=== PATIENT | female | born 1945 | race Caucasian/White ===

== ENCOUNTER → 2017-01-19 | Outpatient (CLI) | payer MEDICARE, MEDICAID ==
[~2017-01-19] MED LIST: NAMENDA ONE; REMERON ONE; RISPERDAL ONE; SYNTHROID ONE
--- NOTE | 2017-01-19 17:07 | DIREP ---
PROCEDURE:MRI UPPER EXTREM JOINT W O CON LEFT COMPARISON:None. INDICATIONS:SHOULDER PAIN TECHNIQUE:A variety of imaging planes and parameters were utilized for visualization of suspected pathology. Images were performed without contrast. FINDINGS: ROTATOR CUFF REGION CUFF TENDONS:Mild supraspinatus tendinosis. Infraspinatus, teres minor and subscapularis tendons are intact. CUFF MUSCLES:Normal appearing muscles. DELTOID:Normal. No significant atrophy or tear. LONG BICEPS TENDON:Normal. No abnormal signal, attrition, or tear. LABRUM/BICEPS ANCHOR SUPERIOR:Diffusely degenerated and torn ANTERIOR/INFERIOR:Diffusely degenerated and torn POSTERIOR:Diffusely degenerated and torn CAPSULE ANTERIOR/INFERIOR:Normal. No visible capsular laxity or thickening. POSTERIOR:Normal. No visible capsular laxity or thickening. AC JOINT REGION AC JOINT:Severe arthropathy with undersurface mass-effect on the supraspinatus muscle. AC LIGAMENTS:Normal acromioclavicular ligament. CC LIGAMENTS:Normal coracoclavicular ligaments. ACROMION:Morphology is type 1. SUBACROMIAL BURSA:Small amount of fluid in the bursa. HYALINE CARTILAGE:Severe cartilage loss. OTHER BONES:Large humeral head osteophytes. Small glenoid osteophytes. OTHER OBSERVATIONS:Small glenohumeral joint effusion. CONCLUSION: 1. Severe glenohumeral degenerative arthropathy. 2. Labrum is diffusely degenerated and torn. 3. Supraspinatus tendinosis. Dictated by: Sunil Rodarte M.D. on 01/19/2017 at 05:03 PM
== END | disposition home or self-care (01) ==
LOC: MRI 09:01
PROVIDERS: ATTEND Orthopaedic Surgery
DX: M12.812 Other specific arthropathies, not elsewhere classified, left shoulder (principal); M75.102 Unspecified rotator cuff tear or rupture of left shoulder, not specified as traumatic
CPT/HCPCS: 73221

== ENCOUNTER 2017-04-12 04:21 | Day surgery (SDC) | payer MEDICARE, MEDICAID ==
[2017-04-09 14:37] VITALS: BP 144/86
--- NOTE | 2017-04-09 14:48 | PCM.EKG ---
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
[~2017-04-12] VITALS: Ht 170.2 cm; Wt 81.6 kg
[~2017-04-12 04:21] MED LIST changes: +CETI10TA18 PO; +FLUO20CA8 PO; +GLIM4TAB2 PO; +LISI10TA2 PO; +LOSA100T6 PO; +MOVIPREP POWDER PACKET PO STA; -NAMENDA ONE; +PIOG30TA27 PO; -REMERON ONE; -RISPERDAL ONE; +SIMV20TA3 PO; -SYNTHROID ONE
[2017-04-12] MEDS ORDERED: NS 1000ML 1,000 ML ONE (05:06)
[2017-04-12] MEDS ORDERED: XYLOCAINE ONE (06:35)
[2017-04-12] MEDS ORDERED: DIPRIVAN IV ONE (06:35)
[2017-04-12 06:55] VITALS: BP 149/76
[2017-04-12] MEDS ORDERED: NS 1000ML 1,000 ML IV SCH (07:00)
[2017-04-12 12:09] VITALS: BP 143/80
[2017-04-12 12:20] VITALS: BP 139/99
[2017-04-12 12:50] VITALS: BP 160/53
--- NOTE | 2017-04-12 13:00 | OPH ---
DATE OF SURGERY: 04/12/2017 PREOPERATIVE DIAGNOSES: 1. History of blood in stools. 2. Need for screening. POSTOPERATIVE DIAGNOSES: 1. Gastritis. 2. Hemorrhoids. 3. Redundant colon. SURGEON: Simba Ng DO ICE CREAM MIXER: OR staff. ANESTHESIA: Total intravenous anesthesia by Santino Syed CRNA. PROCEDURES PERFORMED: 1. EGD with biopsy. 2. Long flexible colonoscopy with cecum. SPECIMENS: Gastric mucosa to path. ESTIMATED BLOOD LOSS: 7 mL. COUNTS: At the completion of the case, the counts were correct per OR staff. DESCRIPTION OF PROCEDURE: The patient is a 71-year-old female known from previous evaluation. Prior to procedure, informed consent was obtained. At time of procedure, she was taken to the operative suite and placed in supine position. After time-out, she was placed in left lateral recumbent position. After adequate sedation, esophagogastroduodenoscope was advanced transorally with pneumoinsufflation distally into second portion of duodenum. Once the duodenum was adequately visualized, camera was slowly withdrawn to facilitate visualization of the duodenal bulb and the pylorus. Pylorus does show gastritis and biopsies were obtained. The retroflexed maneuver was performed. Cardia and fundus were essentially within normal limits. Camera was reduced. Hemostasis noted to be good. Stomach was decompressed. Scope was slowly withdrawn. Distal, mid and proximal esophagus were essentially within normal limits. Vocal cords were visualized within normal limits. Camera was removed. Procedure was continued. The patient remains in the OR. Timeout was previously completed. With adequate sedation, rectal exam was performed. There are no masses. There was noted to be some soft external hemorrhoids. Next, the colonoscope was advanced transanally with pneumoinsufflation proximally through multiple redundancies with extensive efforts to the level of the cecum. Once the cecum was visualized, there was noted to have an adequate prep. Camera was slowly withdrawn to facilitate visualization of the ascending colon, the hepatic flexure and the transverse colon, there was noted to be extensive redundancies in the transverse colon and associated with the splenic flexure. Further withdrawn to the remainder of the splenic flexure, the descending colon, and sigmoid. In the distal descending and the sigmoid, there was noted to be few redundancies. Camera was further withdrawn to the remainder of the sigmoid and the rectum. The visualized portions of the colon showed no overt masses, polyps, or AVMs. Camera was withdrawn to the level of 5 cm in the rectum where it was retroflexed and reinserted. Anal verge was visualized within normal limits. Camera was reduced. Colon was decompressed. Colonoscope was removed. The patient tolerated this procedure well. There were no acute complications noted. Simba Ng DO DR: KENA/gary JOB# [id number] CC: Felicitas Prajapati
[2017-04-12 13:05] VITALS: BP 164/68
[2017-04-12 13:20] VITALS: BP 160/64
== END 2017-04-12 13:35 | disposition home or self-care (01) | DRG 395 ==
LOC: SDC 04:21
PROVIDERS: ATTEND Surgery
DX: K63.89 Other specified diseases of intestine (principal); K29.70 Gastritis, unspecified, without bleeding; K64.9 Unspecified hemorrhoids; E11.65 Type 2 diabetes mellitus with hyperglycemia; E78.5 Hyperlipidemia, unspecified; E66.3 Overweight; I10 Essential (primary) hypertension; M19.012 Primary osteoarthritis, left shoulder; Z98.890 Other specified postprocedural states; Z83.3 Family history of diabetes mellitus; F15.90 Other stimulant use, unspecified, uncomplicated; Z79.899 Other long term (current) drug therapy; K21.9 Gastro-esophageal reflux disease without esophagitis; Z79.84 Long term (current) use of oral hypoglycemic drugs; Z98.49 Cataract extraction status, unspecified eye; Z68.28 Body mass index [BMI] 28.0-28.9, adult
CPT/HCPCS: 43239; 45378; 82948; 93005; J3490 ×2; J7030; 88305; G0105

== ENCOUNTER → 2019-02-24 | Outpatient (CLI) | payer MEDICARE, MEDICAID ==
[~2019-02-24] MED LIST changes: +LOSA100T14 PO; -LOSA100T6 PO; -MOVIPREP POWDER PACKET PO STA
--- NOTE | 2019-02-24 12:02 | DIREP ---
PROCEDURE:US ABDOMEN LIMITED(SINGLE ORGAN-QUAD) COMPARISON:None. INDICATIONS:RUQ PAIN TECHNIQUE: High resolution sonographic examination was performed of the abdomen. FINDINGS: CBD:0.4 cm GALLBLADDER:0.4 cm RIGHT KIDNEY:12.0 x 6.3 x 5.8 cm PANCREAS:Visualized pancreatic head, body and tail are normal. The pancreatic tail is partially obscured by overlying bowel gas. LIVER:Increased hepatic echotexture consistent with hepatic steatosis. No focal hepatic lesion identified. Hepatopetal flow in the portal vein. Normal spectral waveform on the portal vein. GALLBLADDER:Nondilated. Normal appearing gallbladder without evidence for gallbladder wall thickening or pericholecystic fluid. BILIARY:There is no biliary ductal dilatation. RIGHT KIDNEY:Normal. No hydronephrosis. OTHER:Negative. No ascites is identified. CONCLUSION: 1. Hepatic steatosis. Dictated by: HPRA Physician on 02/24/2019 at 11:25 AM elias
== END | disposition home or self-care (01) ==
LOC: RAD 10:44
PROVIDERS: ATTEND Physician Assistant
DX: K76.0 Fatty (change of) liver, not elsewhere classified (principal)
CPT/HCPCS: 76705

== ENCOUNTER → 2020-05-28 | Outpatient (CLI) | payer MEDICARE, MEDICAID ==
[~2020-05-28] MED LIST changes: +FLUO20CA23 PO; -FLUO20CA8 PO; -GLIM4TAB2 PO; +GLIM4TAB8 PO; +SIMV20TA19 PO; -SIMV20TA3 PO
--- NOTE | 2020-05-28 17:18 | DIREP ---
PROCEDURE:CT HEAD OR BRAIN W/O CONTRAST COMPARISON:None. INDICATIONS:GAIT DISTURBANCE TECHNIQUE:CT images were created without intravenous contrast. FINDINGS: VENTRICLES:No hydrocephalus or midline shift. CEREBRUM:Mild enlargement of the cerebral sulci and fissures. Multiple areas of decreased density in the deep white matter of each hemisphere. CEREBELLUM:Negative. BRAINSTEM:Negative. BASAL CISTERNS:Negative. SKULL:Normal. No fractures. SINUSES:Normal. OTHER:No acute intracranial hemorrhage, large territorial infarct, abnormal extra-axial fluid collection, or CT evidence of acute cortical infarct. There is calcification of the intracranial portions of both internal carotid and both vertebral arteries. CONCLUSION: 1. Mild age-related cerebral volume loss, intracranial arterial calcification, and moderate leukoariosis. 2. No acute pathology on noncontrast CT of the head. Dictated by: Rosales Chaves M.D. on 05/28/2020 at 05:16 PM
== END | disposition home or self-care (01) ==
LOC: RAD 15:34
PROVIDERS: ATTEND Physician Assistant
DX: I67.81 Acute cerebrovascular insufficiency (principal); R26.89 Other abnormalities of gait and mobility
CPT/HCPCS: 70450

== ENCOUNTER → 2023-02-17 | Outpatient (CLI) | payer MEDICARE, MEDICAID ==
[~2023-02-17] MED LIST changes: -FLUO20CA23 PO; +FLUO20CA25 PO; -LISI10TA2 PO; +LISI10TA20 PO; -LOSA100T14 PO; +LOSA100T15 PO
== END | disposition home or self-care (01) ==
LOC: RAD 14:45
PROVIDERS: ATTEND Nurse Practitioner Family
DX: S52.132A Displaced fracture of neck of left radius, initial encounter for closed fracture (principal); M25.522 Pain in left elbow; X58.XXXA Exposure to other specified factors, initial encounter; Y93.89 Activity, other specified; Y92.89 Other specified places as the place of occurrence of the external cause; Y99.8 Other external cause status
CPT/HCPCS: 73070-LT

== ENCOUNTER 2024-03-25 09:48 | Observation (INO) | payer MEDICARE ==
[~2024-03-25] VITALS: Ht 170.2 cm; Wt 68.0 kg
[~2024-03-25 09:48] MED LIST changes: -FLUO20CA25 PO; +[UNRECOGNIZED DRUG - CODE] PO
[2024-03-25 09:52] VITALS: BP 186/89; PULSE 98; RESP 18; TEMP 98.1; O2SAT 98
[2024-03-25] MEDS: ZOFRAN IV STA (10:20)
[2024-03-25] MEDS: LACTATED RINGERS 1,000 ML IV SCH (10:21)
[2024-03-25 10:26] LABS: BASOPHIL % 0.2 % (0.1-1.2); EOSINOPHIL % 0.1 % (0.0-5.0); HEMATOCRIT(ML) 49.5 % (36.0-46.0); HEMOGLOBIN 16.2 g/dL (12.0-15.0); LYMPHOCYTES # 1.74 10^3/uL1 (1.0-4.8); LYMPHOCYTES % 13.8 % (24.0-44.0); MEAN CORP HGB CONCENTRATION 32.7 g/dL (33-36.5); MEAN CORP VOLUME 91.7 fL (78-100); MONOCYTES # 0.6 10^3/uL (0.3-0.8); MONOCYTES % 4.7 % (5.0-12.0); NEUTROPHIL # 10.2 10^3/uL (1.8-7.7); PLATELET COUNT 280 10^3/uL (150-400); RED CELL DISTRIBUTION WIDTH 13.3 % (11.5-14.5); WHITE BLOOD CELL 12.6 10^3/uL (4.5-11.0)
[2024-03-25 10:40] LABS: BILIRUBIN,URINE 1+ (NEGATIVE); LEUKOCYTE ESTERASE ,URINE NEGATIVE (NEGATIVE); NITRATE,URINE NEGATIVE (NEGATIVE); PH,URINE 5.5 (4.5-8.0); UROBILINOGEN,URINE 0.2 E.U./dL (0.2)
[2024-03-25 10:52] LABS: +ADD MANUAL DIFF(NO CHRG) NO
[2024-03-25 10:53] VITALS: BP 169/74; PULSE 83; RESP 18; O2SAT 96
[2024-03-25 10:53] LABS: ALBUMIN/GLOBULIN RATIO 0.975; ANION GAP 26.2; BUN/CREATININE RATIO 32.32 (10.0-20.0); CALCIUM 9.4 mg/dL (8.4-10.5); CARBON DIOXIDE 16.8 mmol/L (20.0-32); CREATININE SERUM 0.99 mg/dL (0.59-1.40); EST GFR, NON-AA 54.5 (>/=60)
[2024-03-25 10:58] LABS: APPEARANCE,URINE CLOUDY; UA COLOR YELLOW
[2024-03-25 10:59] LABS: YEAST,URINE MANY (NONE SEEN)
[2024-03-25] MEDS ORDERED: NS 1000ML 1,000 ML ONE (11:07)
[2024-03-25] MEDS: NS 1000ML 1,000 ML IV ONE (11:10)
[2024-03-25 11:38] LABS: VBG PCO2 35.3 mmHg (38.0-54.0); VBG PH 7.255 (7.320-7.430)
[2024-03-25] MEDS: LEVAQUIN 100 ML IV STA (11:47)
[2024-03-25 11:50] VITALS: BP 162/79; PULSE 76; RESP 18; O2SAT 97
[2024-03-25] MEDS ORDERED: ZOFRAN IV PRN (12:00)
[2024-03-25] MEDS ORDERED: TRAZODONE HCL PO PRN (12:00)
[2024-03-25] MEDS ORDERED: NS 100ML 100 ML IV ONE (12:21)
[2024-03-25] MEDS ORDERED: D5W 1000ML 1,000 ML IV PRN (12:30)
[2024-03-25] MEDS ORDERED: ROCEPHIN IV SCH (12:30)
[2024-03-25] MEDS ORDERED: DEXTROSE 50%-WATER SYRINGE IV PRN (12:30)
[2024-03-25] MEDS ORDERED: HUMALOG SQ SCH ×2 (12:30→17:00)
[2024-03-25] MEDS: PROTONIX IV IV SCH (12:49)
[2024-03-25] MEDS: ROCEPHIN 1,000 MG in NS 100ML 100 ML IV SCH (12:49)
[2024-03-25] MEDS: D5LR 1000ML 1,000 ML IV SCH (12:50)
[2024-03-25 12:59] VITALS: BP 181/80; PULSE 79; RESP 18; TEMP 97.5; O2SAT 94
[2024-03-25] MEDS: TRANDATE IV PRN (13:12)
[2024-03-25 13:41] LABS: ANION GAP 20.7; CALCIUM 8.6 mg/dL (8.4-10.5); CARBON DIOXIDE 20.7 mmol/L (20.0-32); CREATININE SERUM 0.73 mg/dL (0.59-1.40); EST GFR, NON-AA 77.5 (>/=60); POTASSIUM 4.4 mmol/L (3.6-5.2)
[2024-03-25 13:46] LABS: BUN/CREATININE RATIO 39.72 (10.0-20.0)
[2024-03-25 16:21] VITALS: BP 140/63; PULSE 66; RESP 16; TEMP 97.7; O2SAT 97
[2024-03-25] MEDS: TYLENOL PO PRN (16:23)
[2024-03-25] MEDS: HUMALOG SQ SCH (16:35)
[2024-03-25 17:43] LABS: ANION GAP 22.1; BUN/CREATININE RATIO 35.82 (10.0-20.0); CALCIUM 8.4 mg/dL (8.4-10.5); CARBON DIOXIDE 16.1 mmol/L (20.0-32); CREATININE SERUM 0.67 mg/dL (0.59-1.40); EST GFR, NON-AA 85.6 (>/=60)
[2024-03-25 17:45] LABS: POTASSIUM 4.2 mmol/L (3.6-5.2)
[2024-03-25 19:00] VITALS: BP 144/57; PULSE 64; RESP 18; TEMP 97.3; O2SAT 94
[2024-03-26] VITALS (7 sets, daily range): BP systolic 128–169; BP diastolic 47–73; PULSE 54–73; RESP 16–18; TEMP 97.2–98.2; O2SAT 90–97
[2024-03-26 06:33] LABS: BASOPHIL % 0.2 % (0.1-1.2); EOSINOPHIL # 0.1 10^3/uL (0.0-0.2); EOSINOPHIL % 1.6 % (0.0-5.0); HEMATOCRIT(ML) 36.7 % (36.0-46.0); LYMPHOCYTES # 2.21 10^3/uL1 (1.0-4.8); LYMPHOCYTES % 25.4 % (24.0-44.0); MEAN CORP HGB 29.9 pg (26-34); MEAN CORP HGB CONCENTRATION 33.5 g/dL (33-36.5); MEAN CORP VOLUME 89.3 fL (78-100); MONOCYTES # 0.8 10^3/uL (0.3-0.8); MONOCYTES % 8.7 % (5.0-12.0); NEUTROPHIL # 5.5 10^3/uL (1.8-7.7); NEUTROPHILS % 63.8 % (41.0-85.0); PLATELET COUNT 190 10^3/uL (150-400); RED BLOOD CELL 4.11 10^6/uL (4.00-5.20); RED CELL DISTRIBUTION WIDTH 13.2 % (11.5-14.5); WHITE BLOOD CELL 8.7 10^3/uL (4.5-11.0)
[2024-03-26 06:47] LABS: ALBUMIN(ML) 2.5 g/dL (3.4-5.0); ALBUMIN/GLOBULIN RATIO 0.806; ANION GAP 12.7; BUN/CREATININE RATIO 32.69 (10.0-20.0); CALCIUM 8.2 mg/dL (8.4-10.5); CARBON DIOXIDE 22.9 mmol/L (20.0-32); CREATININE SERUM 0.52 mg/dL (0.59-1.40); EST GFR, NON-AA 114.6 (>/=60); POTASSIUM 3.6 mmol/L (3.6-5.2)
[2024-03-26 07:22] LABS: HEMOGLOBIN 12.3 g/dL (12.0-15.0)
[2024-03-26 07:23] LABS: +ADD MANUAL DIFF(NO CHRG) NO
[2024-03-26] MEDS: LOVENOX SQ SCH (09:12)
[2024-03-26] MEDS: LEVAQUIN 150 ML IV SCH (09:12)
[2024-03-26] MEDS ORDERED: NS 100ML 100 ML IV ONE (12:18)
[2024-03-26] MEDS: MIRALAX PO ONE (12:18)
[2024-03-26] MEDS ORDERED: ROCEPHIN ONE (12:18)
[2024-03-26] MEDS ORDERED: MIRALAX ONE (12:18)
[2024-03-27] VITALS: BP 145/53; PULSE 90; RESP 16; TEMP 98.4; O2SAT 95
[2024-03-27 03:12] VITALS: BP 136/58; PULSE 60; RESP 16; TEMP 97.7; O2SAT 93
[2024-03-27 06:10] LABS: BASOPHIL % 0.3 % (0.1-1.2); EOSINOPHIL # 0.2 10^3/uL (0.0-0.2); EOSINOPHIL % 2.9 % (0.0-5.0); HEMATOCRIT(ML) 38.6 % (36.0-46.0); LYMPHOCYTES # 1.96 10^3/uL1 (1.0-4.8); LYMPHOCYTES % 28.4 % (24.0-44.0); MEAN CORP HGB CONCENTRATION 33.7 g/dL (33-36.5); MEAN CORP VOLUME 89.1 fL (78-100); MONOCYTES # 0.7 10^3/uL (0.3-0.8); MONOCYTES % 9.6 % (5.0-12.0); NEUTROPHIL # 4.1 10^3/uL (1.8-7.7); NEUTROPHILS % 58.7 % (41.0-85.0); PLATELET COUNT 184 10^3/uL (150-400); RED BLOOD CELL 4.33 10^6/uL (4.00-5.20); RED CELL DISTRIBUTION WIDTH 12.9 % (11.5-14.5); WHITE BLOOD CELL 6.9 10^3/uL (4.5-11.0)
[2024-03-27 06:18] LABS: +ADD MANUAL DIFF(NO CHRG) NO
[2024-03-27 06:21] LABS: ANION GAP 11.2; BUN/CREATININE RATIO 11.86 (10.0-20.0); CALCIUM 8.3 mg/dL (8.4-10.5); CREATININE SERUM 0.59 mg/dL (0.59-1.40); EST GFR, NON-AA 99.1 (>/=60); POTASSIUM 3.2 mmol/L (3.6-5.2)
[2024-03-27 07:41] VITALS: BP 132/52; PULSE 55; RESP 16; TEMP 97.9; O2SAT 96
[2024-03-27] MEDS: MIRALAX PO SCH (08:34)
[2024-03-27] MEDS: KLOR-CON 10 PO STA (08:34)
[2024-03-27 11:00] VITALS: BP 160/70; PULSE 73; RESP 20; TEMP 98.1; O2SAT 94
[2024-03-27] MEDS ORDERED: LIDOCAINE 1% VIAL ONE (12:26)
[2024-03-27] MEDS: ROCEPHIN IM ONE (12:28)
[2024-03-27 12:35] VITALS: BP 160/70; PULSE 73; RESP 20; TEMP 98.1; O2SAT 94
== END 2024-03-27 12:35 | disposition home health service (06) ==
LOC: ER 09:48 → OBS 11:42
PROVIDERS: ADMIT Internal Medicine; ATTEND Internal Medicine
DX: J18.9 Pneumonia, unspecified organism (principal); E11.10 Type 2 diabetes mellitus with ketoacidosis without coma; E86.0 Dehydration; F32.A Depression, unspecified; Z96.1 Presence of intraocular lens; Z79.899 Other long term (current) drug therapy
CPT/HCPCS: 96367; 99291; 96365; 96361 ×3; 96375; 87086; 71045; 87106; 80053 ×2; 85025 ×3; 82948 ×3; 36415 ×3; 80048 ×2; 84484; 87040; 83605; 81001; 82010; 93005; 82803; 96372 ×2; 96366 ×2; 96376 ×2; G0378 ×4; J7030; J7120; J7121 ×3; J1815 ×2; J1956 ×3; J2405; J0696 ×3; J3490 ×4; J2470 ×3; J1650 ×2; J2001; C9113

== ENCOUNTER → 2024-07-07 | Outpatient (CLI) | payer MEDICARE | END | disposition home or self-care (01) | LOC: BD 10:45 | PROVIDERS: ATTEND Nurse Practitioner | DX: M81.8 Other osteoporosis without current pathological fracture (principal); Z78.0 Asymptomatic menopausal state | CPT/HCPCS: 77080 ==